=== PATIENT | male | born 1975 | race Caucasian/White ===

== ENCOUNTER 2021-05-08 17:54 | Inpatient (IN) | payer MEDICARE ==
[~2021-05-08] VITALS: Ht 182.9 cm; Wt 100.0 kg
[2021-05-08 18:37] LABS: BASOPHILS 0.2 % (0-2); EOSINOPHILS 0 % (0-7); HEMATOCRIT 46.3 % (42.0-54.0); HEMOGLOBIN 15.9 g/dL (13.5-17.5); LYMPHOCYTES 5.8 % (15-50); MCH 31.5 pg (26.0-34.0); MCHC 34.2 g/dL (31.0-37.0); MEAN PLATELET VOLUME 7.2 fL (7.4-10.4); MONOCYTES 5.8 % (2-11); NEUTROPHILS 88.2 % (40-80); PLATELET COUNT 238 10x3/uL (130-400); RBC 5.03 10x6/uL (4.20-6.10); WBC 17.4 10x3/uL (4.8-10.8)
[2021-05-08 18:45] LABS: APTT 26.5 SECONDS (22.8-39.4); INR 1.16 (0.85-1.17); PROTIME 13.7 SECONDS (11.6-15.0)
[2021-05-08 18:46] LABS: CALC OSMOLALITY 279 mosm/kg (275-300); CALCIUM 8.6 mg/dL (8.5-10.1); CARBON DIOXIDE 24.6 mmol/L (21.0-32.0); CHLORIDE - SERUM 107 mmol/L (98-107); CREATININE - SERUM 1.1 mg/dL (0.6-1.3); GLUCOSE 117 mg/dL (74-106); POTASSIUM - SERUM 3.8 mmol/L (3.5-5.1); SODIUM 141 mmol/L (136-145); UREA NITROGEN 8 mg/dL (7-18); eGFR NON AFRICAN AMERICAN 78 mL/min (90-120)
[2021-05-08 19:03] LABS: ALBUMIN 3.6 g/dL (3.4-5.0); ALKALINE PHOSPHATASE 91 U/L (30-120); ALT (SGPT) 28 U/L (10-68); BILIRUBIN - TOTAL 0.87 mg/dL (0.2-1.3); CKMB 2.2 U/L (0.0-3.6); CREATINE KINASE 246 UL (21-232); MAGNESIUM - SERUM 2.1 mg/dL (1.8-2.4); PROTEIN - SERUM 6.8 g/dL (6.4-8.2); TROPONIN-I < 0.017 ng/mL (0.000-0.060)
--- NOTE | 2021-05-08 19:40 | NUR ---
PATIENT UNCOOPERATIVE WITH NURSING STAFF WHEN ASKED TO USE URINAL. PATIENT STATED TO NURSE "GET OUT OF MY ROOM" WHEN NURSE ASKED TO DO AN IN AND OUT CATHETER FOR A URINE SAMPLE. PATIENT BECAME AGGRESSIVE WITH NURSE VERBALLY.
[2021-05-09 01:00] VITALS: BP 132/73
--- NOTE | 2021-05-09 01:00 | NUR ---
REPORT FROM KHURRAM ALEXANDRA. PT RESTING AT THIS TIME. PT ON MONITOR FLUIDS INFUSING.
[2021-05-09 01:29] LABS: CKMB 2.1 U/L (0.0-3.6); TROPONIN-I 0.037 ng/mL (0.000-0.060)
[2021-05-09 01:31] LABS: CREATINE KINASE 486 UL (21-232)
[2021-05-09 02:00] VITALS: BP 140/75
--- NOTE | 2021-05-09 02:00 | NUR ---
PT RESTING EYES CLOSED RESP EVEN AND UNLABORED. PT SNORES AND TOSS'S AND TURNS IN SLEEP.
--- NOTE | 2021-05-09 03:00 | NUR ---
PT RESP EVEN AND UNLABORED AT THIS PT ON [facility].
[2021-05-09 04:00] VITALS: BP 133/73
--- NOTE | 2021-05-09 04:00 | NUR ---
PT IN STRECHER PT ON MONITOR. PT RESP EVEN AND UNLABORED.
--- NOTE | 2021-05-09 05:00 | NUR ---
PT RESP EVEN AND UNLABORED. PT ON MONITOR AT THIS TIME PT RESP EVEN AND UNLABORED. FLUIDS INFUSING.
--- NOTE | 2021-05-09 06:00 | NUR ---
PT RESP EVEN AND UNLABORED.
[2021-05-09 06:34] VITALS: BP 151/87
[2021-05-09 07:01] LABS: BASOPHILS 0.4 % (0-2); EOSINOPHILS 0.3 % (0-7); HEMATOCRIT 44.3 % (42.0-54.0); HEMOGLOBIN 15.2 g/dL (13.5-17.5); LYMPHOCYTES 20.4 % (15-50); MCH 31.5 pg (26.0-34.0); MCHC 34.3 g/dL (31.0-37.0); MCV 91.8 fL (80.0-100.0); MEAN PLATELET VOLUME 7.4 fL (7.4-10.4); MONOCYTES 11.5 % (2-11); NEUTROPHILS 67.4 % (40-80); PLATELET COUNT 229 10x3/uL (130-400); RBC 4.83 10x6/uL (4.20-6.10); RDW 12.9 % (11.5-14.5); WBC 13.1 10x3/uL (4.8-10.8)
[2021-05-09 07:21] LABS: ALBUMIN 3.4 g/dL (3.4-5.0); ALKALINE PHOSPHATASE 84 U/L (30-120); ALT (SGPT) 30 U/L (10-68); BILIRUBIN - TOTAL 1.44 mg/dL (0.2-1.3); CALCIUM 8.1 mg/dL (8.5-10.1); CHLORIDE - SERUM 109 mmol/L (98-107); CKMB 1.7 U/L (0.0-3.6); CREATININE - SERUM 0.9 mg/dL (0.6-1.3); GLUCOSE 97 mg/dL (74-106); MAGNESIUM - SERUM 2.4 mg/dL (1.8-2.4); PHOSPHOROUS 2.6 mg/dL (2.5-4.9); POTASSIUM - SERUM 3.4 mmol/L (3.5-5.1); PROTEIN - SERUM 6.6 g/dL (6.4-8.2); SODIUM 143 mmol/L (136-145); THYROID STIMULATING HORMONE 0.79 uIU/mL (0.36-3.74); TROPONIN-I 0.017 ng/mL (0.000-0.060); eGFR NON AFRICAN AMERICAN > 90 mL/min (90-120)
[2021-05-09 07:22] LABS: CALC OSMOLALITY 283 mosm/kg (275-300); CREATINE KINASE 663 UL (21-232); UREA NITROGEN 11 mg/dL (7-18)
--- NOTE | 2021-05-09 07:30 | NUR ---
PT ON STRETCHER; SLEEPING IN NAD. ON CAM. IVF INFUSING WITHOUT REDNESS OR EDEMA TO SITE.
[2021-05-09 08:00] VITALS: BP 149/93
--- NOTE | 2021-05-09 09:41 | NUR ---
MOTHER OF PATIENT CALLED FOR UPDATE. UPDATED TO PT STATUS. MOTHER REQUESTS TO SPEAK WITH INPATIENT PHYSICIAN AFTER ROUNDS. MOTHER ALSO INFORMED THIS RN THAT PATIENT HAD SURGERY TO RIGHT 5TH FINGER LAST WEEK AND THERE ARE SUTURES.
[2021-05-09 10:11] LABS: AMORPHOUS SEDIMENT OCC LPF (<FEW); BACTERIA FEW HPF (<MOD); BILIRUBIN NEGATIVE (NEGATIVE); GRANULAR CAST 1 LPF (0-1); KETONE 1+ mg/dL (< 1+); NITRITE NEGATIVE (NEGATIVE); PH 5.5 (5.0-8.0); UROBILINOGEN NORMAL mg/dL (< 2); WHITE CELLS - URINE <1 HPF (0-1)
[2021-05-09 10:22] LABS: UDS - AMPHET NEGATIVE QUAL (NEGATIVE); UDS - BARB NEGATIVE QUAL (NEGATIVE); UDS - BENZO NEGATIVE QUAL (NEGATIVE); UDS - COCAINE NEGATIVE QUAL (NEGATIVE); UDS - OPIATE NEGATIVE QUAL (NEGATIVE); UDS - PCP NEGATIVE QUAL (NEGATIVE); UDS - THC NEGATIVE QUAL (NEGATIVE)
[2021-05-09 12:52] LABS: CKMB 2.3 U/L (0.0-3.6); CREATINE KINASE 751 UL (21-232); TROPONIN-I 0.017 ng/mL (0.000-0.060)
[2021-05-09 14:43] VITALS: BP 145/67
--- NOTE | 2021-05-09 15:10 | NUR ---
SPOKE WITH DEJAN BEY. BONILLA TO START REGULAR DIET. CONTINUE NS@ 125ML/HR AT THIS TIME. ORDER ENTERED AND PATIENT PROVIDED WITH DRINK. AWAITING DINNER TRAY.
--- NOTE | 2021-05-09 21:48 | NUR ---
PT ARRIVED ON UNIT VIA WHEELCHAIR, ESCORTED BY ER STAFF. ORIENTED TO ROOM AND CALL LIGHT. IV TO LEFT AC PATENT WITH NS INFUSING AT 125 ML/HR. TELEMETRY PLACED PER ORDER AND READING SR. WILL MONITOR FOR NEEDS.
[2021-05-10] VITALS: BP 129/61; Ht 182.9 cm; Wt 100.0 kg
[2021-05-10 04:00] VITALS: BP 128/80
[2021-05-10 06:16] LABS: BASOPHILS 0.5 % (0-2); EOSINOPHILS 2.4 % (0-7); HEMATOCRIT 43.3 % (42.0-54.0); HEMOGLOBIN 14.9 g/dL (13.5-17.5); LYMPHOCYTES 28.3 % (15-50); MCH 31.5 pg (26.0-34.0); MCHC 34.5 g/dL (31.0-37.0); MCV 91.2 fL (80.0-100.0); MONOCYTES 10.4 % (2-11); NEUTROPHILS 58.4 % (40-80); PLATELET COUNT 195 10x3/uL (130-400); RBC 4.74 10x6/uL (4.20-6.10); RDW 12.8 % (11.5-14.5)
[2021-05-10 06:23] LABS: ALKALINE PHOSPHATASE 74 U/L (30-120); ALT (SGPT) 25 U/L (10-68); BILIRUBIN - TOTAL 1.29 mg/dL (0.2-1.3); CALCIUM 7.8 mg/dL (8.5-10.1); CARBON DIOXIDE 23.7 mmol/L (21.0-32.0); CHLORIDE - SERUM 111 mmol/L (98-107); CREATININE - SERUM 0.9 mg/dL (0.6-1.3); GLUCOSE 94 mg/dL (74-106); MAGNESIUM - SERUM 2.2 mg/dL (1.8-2.4); PHOSPHOROUS 2.5 mg/dL (2.5-4.9); POTASSIUM - SERUM 3.7 mmol/L (3.5-5.1); SODIUM 144 mmol/L (136-145); eGFR NON AFRICAN AMERICAN > 90 mL/min (90-120)
[2021-05-10 06:27] LABS: CALC OSMOLALITY 284 mosm/kg (275-300); UREA NITROGEN 7 mg/dL (7-18)
[2021-05-10 08:54] VITALS: BP 155/95
--- NOTE | 2021-05-10 08:56 | NUR ---
PT SEEN AND ASSESSED. NO COMPLAINTS AT PRESENT. NO SEIZURE ACTIVITY NOTED THRU THE NIGHT NORE AT PRESESNT. ABLE TO AMBULATE TO BATHROOM PER SELF WITH STEADY GAIT. CALL LIGHT IN PLACE
--- NOTE | 2021-05-10 11:08 | NUR ---
iv leaking blood from left ac resited to right forearm with 22ga x 1 without complaints. call light in reach
[2021-05-10] MEDS ORDERED: KEPPRA750 MG PO (12:53)
[2021-05-10 13:17] VITALS: BP 176/71
--- NOTE | 2021-05-10 13:39 | MORECARE ---
CASE MANAGEMENT DISCHARGE SUMMARY PATIENT: CHRISTY JURADO UNIT: [id number] ADM DATE: 05/08/21 AGE: 45 : 79 SEX: M ROOM/BED: D.2203 AUTHOR: BERTHA,DOC PHYSICIAN: REFERRING PHYSICIAN: DONOVAN MARCANO MD DATE OF SERVICE: 05/10/21 Case Management Discharge Planning Summary COMMENTS ENTERED DATE: 05/10/21 13:37 CT COMMENT TYPE: Discharge Planning REVIEWER: Tamie Rodriguez CM met with patient to complete initial dc planning assessment. CM educated patient on the CM role and verbal consent given by patient to complete assessment. Patient lives at home with his parents where he is independent with his care. At discharge patient plans to return home and feels this is a safe discharge. CM discussed availability of home health, rehab services, and medical equipment. His mom will be his non cdl driver home. He does not use any DME. He is a patient of Dr Nowak and uses the [facility] in [place]. Patient denied known discharge needs at this time. CM will continue to follow and will assist as needed with dc plans/needs. DCP REVIEW SUMMARY ANTICIPATED D/C DATE: EXPECTED LOS : CASE STATUS: DCP Initiated INITIAL REVIEW: 05/08/2021 INITIAL REVIEWER: Tamie Rodriguez FINAL DISCHARGE DISPOSITION: 01 : Home or Self Care (Routine Discharge) FINAL REVIEWER: FINAL REVIEW DATE: DCP [facility] Questions & Answers QUESTION: ANSWER : PATIENT: CHRISTY JURADO ENCOUNTER: [id number] MEDICAL RECORD#: [id number] ADMISSION DATE: 05/08/2021 DISCHARGE DATE: ATTENDING MD: DONOVAN SOLITARIO : AGE: 45 MARITAL STATUS: S DC PLAN ID: [id number] FACILITY: [facility] PRINTED ON: 05/10/21 13:39 CT All edits/amendments must be made on the electronic document DICTATION DATE: 05/10/21 133 [employer] SORTER: BRAD 05/10/21 133 RPT#: [id number] DC DATE: STATUS: ADM IN [facility] [address] [place] [id number] END OF REPORT
--- NOTE | 2021-05-10 14:05 | MORECARE ---
CASE MANAGEMENT DISCHARGE SUMMARY PATIENT: CHRISTY JURADO UNIT: [id number] ADM DATE: 05/08/21 AGE: 45 : 79 SEX: M ROOM/BED: D.2203 AUTHOR: BERTHA,DOC PHYSICIAN: REFERRING PHYSICIAN: DONOVAN MARCANO MD DATE OF SERVICE: 05/10/21 Case Management Discharge Planning Summary COMMENTS ENTERED DATE: 05/10/21 13:37 CT COMMENT TYPE: Discharge Planning REVIEWER: Tamie Rodriguez CM met with patient to complete initial dc planning assessment. CM educated patient on the CM role and verbal consent given by patient to complete assessment. Patient lives at home with his parents where he is independent with his care. At discharge patient plans to return home and feels this is a safe discharge. CM discussed availability of home health, rehab services, and medical equipment. His mom will be his company driver home. He does not use any DME. He is a patient of Dr Nowak and uses the [facility] in [place]. Patient denied known discharge needs at this time. CM will continue to follow and will assist as needed with dc plans/needs. DCP REVIEW SUMMARY ANTICIPATED D/C DATE: EXPECTED LOS : CASE STATUS: DCP Initiated INITIAL REVIEW: 05/08/2021 INITIAL REVIEWER: Tamie Rodriguez FINAL DISCHARGE DISPOSITION: 01 : Home or Self Care (Routine Discharge) FINAL REVIEWER: FINAL REVIEW DATE: DCP [employer] Questions & Answers QUESTION: ANSWER : PATIENT: CHRISTY JURADO ENCOUNTER: [id number] MEDICAL RECORD#: [id number] ADMISSION DATE: 05/08/2021 DISCHARGE DATE: 05/10/2021 ATTENDING MD: DONOVAN SOLITARIO : AGE: 45 MARITAL STATUS: S DC PLAN ID: [id number] FACILITY: [facility] PRINTED ON: 05/10/21 14:05 CT All edits/amendments must be made on the electronic document DICTATION DATE: 05/10/21 140 SLIMER: BRAD 05/10/21 1405 RPT#: [id number] DC DATE:05/10/21 STATUS: DIS IN [facility] [id number] [place] [address] END OF REPORT
== END 2021-05-10 14:01 | disposition home or self-care (01) | DRG 101 ==
LOC: D.ER 17:54 → D.MS 20:28 → D.EDHOLD 20:28 → D.MS 05-09 16:51
PROVIDERS: Family Medicine; ADMIT Emergency Medicine; ATTEND Emergency Medicine
DX: R56.9 Unspecified convulsions (principal); Z87.820 Personal history of traumatic brain injury; D72.829 Elevated white blood cell count, unspecified; F32.9 Major depressive disorder, single episode, unspecified; J01.90 Acute sinusitis, unspecified